=== PATIENT | male | born 1955 | race Hispanic/Latino ===

== ENCOUNTER → 2024-06-23 | Outpatient (CLI) | payer MEDICARE ==
[2024-06-23 12:15] LABS: HEMATOCRIT 29.3 % (42-54); PFA INTERPRETATION PFA INTERPRETATION; PLATELET COUNT (AUTO) 194 K/uL (130-400); PLATELET FUNCTION ANALYSIS ADP 131 SEC (62-100); PLATELET FUNCTION ANALYSIS EPI 143 SEC (55-192)
== END | disposition home or self-care (01) ==
LOC: LAB 11:07
PROVIDERS: ATTEND Internal Medicine Medical Oncology
DX: R58 Hemorrhage, not elsewhere classified (principal)
CPT/HCPCS: 36415; 85576